=== PATIENT | female | born 1945 | race Caucasian/White ===

== ENCOUNTER 2021-07-01 13:45 | Emergency (ER) | payer MEDICARE, OTHER ==
[~2021-07-01] VITALS: Ht 160 cm; Wt 68.9 kg
[2021-07-01] MEDS ORDERED: RIVA10TA PO (16:44)
--- NOTE | 2021-07-01 17:07 | NUR ---
Patient was seen by MD. Xrays done. Splint placed by other RN. DC, Rx and follow up isntructions including ortho md instructions given and explained to patient who states she understands all instructions.
== END 2021-07-01 17:08 | disposition home or self-care (01) ==
LOC: ER 13:45
DX: S52.592A Other fractures of lower end of left radius, initial encounter for closed fracture (principal); W18.30XA Fall on same level, unspecified, initial encounter; Y92.89 Other specified places as the place of occurrence of the external cause; M19.042 Primary osteoarthritis, left hand; R03.0 Elevated blood-pressure reading, without diagnosis of hypertension
CPT/HCPCS: 73110; A4663